=== PATIENT | male | born 1990 | race Caucasian/White ===

== ENCOUNTER → 2018-03-21 | Outpatient (CLI) | payer SELFPAY ==
[~2018-03-21] MED LIST: AMOX500 PO; LORA10ER PO; PRED10 PO; TRIA80TC TOP; [UNRECOGNIZED DRUG - REMARK]
== END | disposition home or self-care (01) ==
LOC: LAB EV 14:46 → LAB SHORT 14:46
DX: L02.415 Cutaneous abscess of right lower limb (principal)
CPT/HCPCS: 87070; 87075; 87077; 87147; 87186; 87205